=== PATIENT | female | born 1975 | race Two or more races ===

== ENCOUNTER 2022-09-27 23:43 | Emergency (ER) | payer MEDICAID, OTHER ==
[~2022-09-27] VITALS: Ht 157.5 cm; Wt 93.0 kg
[2022-09-28] MEDS ORDERED: PRED20TA2 PO (02:36)
[2022-09-28] MEDS ORDERED: AMOX-277 PO (02:36)
[2022-09-28] MEDS ORDERED: ACET-1158 PO (02:36)
[2022-09-28 03:00] VITALS: BP 139/84
== END 2022-09-28 03:12 | disposition home or self-care (01) ==
LOC: ER 23:43
DX: J06.9 Acute upper respiratory infection, unspecified (principal); I10 Essential (primary) hypertension; Z20.822 Contact with and (suspected) exposure to COVID-19
CPT/HCPCS: 36415; 71045; 87426; 87804; 93005